=== PATIENT | female | born 1985 | race Caucasian/White ===

== ENCOUNTER 2024-01-01 18:47 | Emergency (ER) | payer MEDICAID ==
[~2024-01-01] VITALS: Ht 160 cm; Wt 72.0 kg
[2024-01-01 18:53] VITALS: O2SAT 98
[2024-01-01 20:11] LABS: BASOPHILS % 0.2 % (0.0-2.0); EOSINOPHILS % 0.3 % (0.0-5.0); HEMATOCRIT. 35.5 % (36.0-48.0); HEMOGLOBIN. 12.2 g/dL (12.0-16.0); LYMPHOCYTES % 33.7 % (20.0-50.0); MEAN CORPUSCULAR HEMOGLOBIN 29.6 pg (28.0-32.0); MEAN CORPUSCULAR HGB CONC 34.3 g/dL (31.0-37.0); MEAN CORPUSCULAR VOLUME 86.2 fL (81.0-99.0); MEAN PLATELET VOLUME 8.3 fl (7.4-10.4); MONOCYTES % 5.7 % (2.0-8.0); NEUTROPHILS % 60.1 % (40.0-76.0); PLATELET 241 x1000/uL (130-400); RED BLOOD CELL COUNT 4.12 mill/uL (4.2-5.4); RED CELL DISTRIBUTION WIDTH 13.4 % (11.6-14.6); WHITE BLOOD COUNT 6.6 x1000/uL (4.5-11.0)
[2024-01-01] MEDS: DIPHENHYDRAMINE 50MG/ML VIAL IV ONE (20:19)
[2024-01-01] MEDS: PROCHLORPERAZINE 10MG/2ML VIAL IV ONE (20:19)
[2024-01-01] MEDS: SODIUM CHLORIDE 0.9% 1,000 ML IV ONE (20:19)
[2024-01-01 20:20] LABS: CARBON DIOXIDE 27 mEq/L (21-32); CHLORIDE 104 mEq/L (98-107); POTASSIUM 3.6 mEq/L (3.5-5.1); SODIUM 139 mEq/L (136-145)
[2024-01-01 20:22] LABS: HCG SCREEN NEGATIVE
[2024-01-01 20:25] LABS: CREATININE 0.7 mg/dL (0.6-1.0); GLUCOSE 216 mg/dL (70-105)
[2024-01-01 20:26] LABS: UREA NITROGEN BLOOD 8 mg/dL (9-23)
[2024-01-01 23:00] VITALS: TEMP 98
[2024-01-01 23:06] VITALS: BP 125/77; PULSE 72; RESP 15
[2024-01-01] MEDS: KETOROLAC 30MG/ML VIAL IV ONE (23:06)
== END 2024-01-01 23:18 | disposition home or self-care (01) ==
LOC: ER 18:47
DX: G43.909 Migraine, unspecified, not intractable, without status migrainosus (principal); E11.9 Type 2 diabetes mellitus without complications
CPT/HCPCS: 80048; 84703; 85025; 36415; 71045; 93005; 96361; 96374; 96375; 99285; J1200; J1885; J0780; J7030; Z7610 ×3

== ENCOUNTER 2024-03-18 20:07 | Emergency (ER) | payer MEDICAID ==
[~2024-03-18] VITALS: Ht 165.1 cm; Wt 100.0 kg
[2024-03-18 19:58] VITALS: O2SAT 98
[2024-03-18 20:41] LABS: BASOPHILS % 0.2 % (0.0-2.0); EOSINOPHILS % 0.3 % (0.0-5.0); HEMATOCRIT. 32.5 % (36.0-48.0); HEMOGLOBIN. 11.1 g/dL (12.0-16.0); LYMPHOCYTES % 21.9 % (20.0-50.0); MEAN CORPUSCULAR HGB CONC 34.2 g/dL (31.0-37.0); MEAN CORPUSCULAR VOLUME 87.8 fL (81.0-99.0); MEAN PLATELET VOLUME 7.7 fl (7.4-10.4); MONOCYTES % 7.2 % (2.0-8.0); NEUTROPHILS % 70.4 % (40.0-76.0); PLATELET 228 x1000/uL (130-400); RED CELL DISTRIBUTION WIDTH 13.5 % (11.6-14.6); WHITE BLOOD COUNT 7.7 x1000/uL (4.5-11.0)
[2024-03-18 20:55] LABS: CHLORIDE 99 mEq/L (98-107); POTASSIUM 3.7 mEq/L (3.5-5.1); SODIUM 131 mEq/L (136-145)
[2024-03-18 20:56] LABS: CALCIUM 8.9 mg/dL (8.7-10.4); CARBON DIOXIDE 24 mEq/L (21-32)
[2024-03-18 21:01] LABS: CREATININE 0.6 mg/dL (0.6-1.0); GLUCOSE 175 mg/dL (70-105); UREA NITROGEN BLOOD 7 mg/dL (9-23)
[2024-03-18 21:03] LABS: ALANINE AMINOTRANSFERASE 15 IU/L (10-49); ALBUMIN 4.4 g/dL (3.2-4.8); ASPARTATE AMINOTRANSFERASE 14 IU/L (<34); BILIRUBIN TOTAL 0.6 mg/dL (0.1-1.0); HCG SCREEN NEGATIVE
[2024-03-18] MEDS: ONDANSETRON HCL 4MG/2ML INJ IV STA (21:35)
[2024-03-18] MEDS: SODIUM CHLORIDE 0.9% 1,000 ML IV ONE (21:35)
[2024-03-18] MEDS: METOCLOPRAMIDE HCL 10MG/2ML VIAL IV ONE (21:49)
[2024-03-18] MEDS: ACETAMINOPHEN 1000MG/100ML 100 ML IV ONE (21:49)
[2024-03-19] MEDS ORDERED: ONDA4TAB50 MT (01:00)
[2024-03-19 01:14] VITALS: BP 109/66; PULSE 66; RESP 13; TEMP 36.44736; O2SAT 99
== END 2024-03-19 01:25 | disposition home or self-care (01) ==
LOC: ER 20:07
DX: R11.2 Nausea with vomiting, unspecified (principal); R19.7 Diarrhea, unspecified; E11.9 Type 2 diabetes mellitus without complications; Z20.822 Contact with and (suspected) exposure to COVID-19
CPT/HCPCS: 80053; 84703; 85025; 36415; 96365; 96375; 99284; 87426; J2765; J2405; J7030; Z7610 ×4; J0131